=== PATIENT | female | born 1990 ===

== ENCOUNTER 2017-12-20 17:40 | Emergency (ER) | payer OTHER ==
[2017-12-20 17:56] VITALS: BP 138/87
[2017-12-20] MEDS ORDERED: Ketorolac INJ* 60 MG/2 ML VIAL IM ONE (18:20)
[2017-12-20] MEDS ORDERED: Cyclobenzaprine TAB* 10 MG PO ONE (18:24)
--- NOTE | 2017-12-20 18:24 | UC ---
Back Pain HPI - HPI Summary HPI Summary: pain began yesterday in left buttock---pain radiates down out thigh in to foot-- -makes her knee feel like it is going to buckle---has had sciatic in the past and this feels the same---just moved to [place] a couple of months ago and does not have a pcp - History of Current Complaint Chief Complaint: UCBackPain Stated Complaint: LEG, KNEE PAIN Time Seen by Provider: 12/20/17 18:10 Hx Obtained From: Patient Hx Last Menstrual Period: MID NOVEMBER ?: No Onset/Duration: Sudden Onset, Lasting Days - 2, Still Present, Worse Since - got worse through out the day-she was working all day in customer service Timing: Constant Pain Intensity: 9 Pain Scale Used: 0-10 Numeric Back Pain: Is Diffuse - left buttock down thight to foot Character: Aching, Throbbing, Spasmodic Aggravating Factor(s): Movement, Walking Alleviating Factor(s): Nothing Associated Signs And Symptoms: Positive: Negative - Allergies/Home Medications Allergies/Adverse Reactions: Allergies Allergy/AdvReac Type Severity Reaction Status Date / Time No Known Allergies Allergy Verified 12/20/17 17:55 PMH/Surg Hx/FS Hx/Imm Hx Previously Healthy: Yes - Surgical History Surgical History: Yes Surgery Procedure, Year, and Place: - Family History Known Family History: Positive: None - Social History Occupation: Employed Part-time Lives: With Family Alcohol Use: None Substance Use Type: None Smoking Status (MU): Never Smoked Tobacco Review of Systems All Other Systems Reviewed And Are Negative: Yes Constitutional: Positive: Negative Skin: Positive: Negative Eyes: Positive: Negative ENT: Positive: Negative Respiratory: Positive: Negative Cardiovascular: Positive: Negative Gastrointestinal: Positive: Negative Genitourinary: Positive: Negative Motor: Positive: Negative Neurovascular: Positive: Negative Musculoskeletal: Positive: Arthralgia - left lower leg throgh knee in to foot, Myalgia - left buttock down through left thigh Neurological: Positive: Negative Psychological: Positive: Negative Is Patient Immunocompromised?: No Physical Exam Triage Information Reviewed: Yes Appearance: Well-Appearing, Pain Distress, Obese Vital Signs: Initial Vital Signs Temp 98 F 12/20/17 17:52 Pulse 74 12/20/17 17:52 Resp 16 12/20/17 17:52 BP 138/87 12/20/17 17:52 Pulse Ox 99 12/20/17 17:52 Vital Signs Reviewed: Yes Eye Exam: Normal Eyes: Positive: Conjunctiva Clear ENT Exam: Normal ENT: Positive: Normal ENT inspection, Hearing grossly normal. Negative: Trismus , Muffled voice, Hoarse voice Dental Exam: Normal Neck exam: Normal Neck: Positive: Supple, Nontender Respiratory Exam: Normal Respiratory: Positive: Chest non-tender, No respiratory distress, No accessory muscle use Cardiovascular Exam: Normal Cardiovascular: Positive: RRR, Pulses Normal, Brisk Capillary Refill Musculoskeletal Exam: Normal Musculoskeletal: Positive: Strength Intact, ROM Intact, No Edema Neurological Exam: Normal Neurological: Positive: Alert, Muscle Tone Normal Psychological Exam: Normal Skin Exam: Normal Back Pain Course/Dx - Course Course Of Treatment: tordal and flexeril tonight, then medrol dose pack and flexeril follow with [facility] for primary care and further treatment - Differential Dx/Diagnosis Provider Diagnoses: left sciatica Discharge - Sign-Out/Discharge Documenting (check all that apply): Patient Departure All imaging exams completed and their final reports reviewed: No Studies - Discharge Plan Condition: Stable Disposition: HOME Prescriptions: Cyclobenzaprine TAB* [Flexeril 10 MG TAB*] 10 mg PO BID PRN #10 tab PRN Reason: muscle tightness methylPREDNISolone [Medrol] 4 mg PO .SEE ASA INSTRUCTION #1 pkt Patient Education Materials: Sciatica (ED), Lower Back Exercises (ED) Referrals: [facility] [Outside] - 5 Days [facility] [Outside] - 5 Days - Billing Disposition and Condition Condition: STABLE Disposition: Home
== END 2017-12-20 19:04 | disposition home or self-care (01) ==
LOC: UCEAST 17:40
DX: M54.32 Sciatica, left side (principal)
CPT/HCPCS: 96372; 99202; A9270-GY; G0463; J1885